=== PATIENT | female | born 1965 | race Hispanic/Latino ===

== ENCOUNTER 2017-12-25 16:32 | Emergency (ER) | payer SELFPAY ==
--- NOTE | 2017-12-25 17:08 | EKG ---
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
[2017-12-25] MEDS ORDERED: NA CHLORIDE 0.9% 1,000 ML ONE (17:09)
[2017-12-25 17:23] LABS: Urine Blood 3+ (NEG); Urine Glucose NEGATIVE (NEG); Urine Protein 1+ (NEG); Urine Specific Gravity 1.025 (1.005-1.030); Urine pH 5.5 (5.0-7.0)
[2017-12-25 17:40] LABS: Absolute Monocytes 1.2 K/uL (0.1-1.3); Absolute Neutrophil 0.8 K/uL (1.8-8.0); Basophils % 0.4 % (0-1.3); Eosinophils % 0.1 % (0-4.4); Lymphocytes % 34.1 % (15.3-44.8); MCH 38.8 pg (27.0-35.0); MCV 111.9 fL (80-100); MPV 7.7 fL (7.6-11.3); Monocytes % 40.5 % (3.3-12.3); RBC Red Blood Cell Count 0.86 M/uL (3.86-4.86)
[2017-12-25 17:43] LABS: Hematocrit 9.6 % (36.0-45.0)
[2017-12-25] MEDS ORDERED: POTASSIUM CL SA 10 MEQ TAB PO ONE (17:43)
[2017-12-25 18:06] LABS: Blood Morphology Comment NOTED (NOT SEEN); Platelet Estimate DECR
[2017-12-25 18:08] LABS: Anisocytosis 2+; Macrocytosis 3+
[2017-12-25 18:09] LABS: Hypochromasia 3+
[2017-12-25] MEDS ORDERED: NA CHLORIDE 0.9% 250 ML ONE (18:41)
--- NOTE | 2017-12-25 18:53 | RAD REPORT ---
EXAM DESCRIPTION: US - Transvaginal Study Probe - 12/25/2017 6:45 pm CLINICAL HISTORY: VAGINAL BLEEDING Pelvic pain. COMPARISON: No comparisons FINDINGS: The uterus is normal in size, shape and echotexture. Posterior myometrial fibroid is noted measuring 13 x 15 x 12 mm with evidence of submucosal extension. The uterus measures 7.1 x 4.2 x 3.6 cm. The endometrial stripe measures 5 mm, normal. Both ovaries are normal in size, shape and echotexture. The right ovary measures 3.8 x 2.3 x 2.0 cm. The left ovary measures 2.7 x 2.2 x 1.6 cm. No ovarian or parovarian lesions. No adnexal masses. Normal Doppler blood flow was demonstrated to both ovaries. No significant pelvic ascites. IMPRESSION: Posterior submucosal myometrial fibroid, otherwise negative study.
--- NOTE | 2017-12-25 20:25 | EDPHYS ---
Physician Documentation [facility] Name: Ashli Dickinson Age: 52 yrs Sex: Female : 1965 Arrival Date: 12/25/2017 Time: 16:35 Bed 14 Private MD: ED Physician Tee Amaya HPI: 12/25 17:28 This 52 yrs old Female presents to ER via Ambulatory with complaints of kb Vaginal Bleeding. 17:28 The patient presents with vaginal bleeding that is. Onset: The symptoms/episode kb began/occurred 5 day(s) ago. Modifying factors: The symptoms are alleviated by nothing, the symptoms are aggravated by nothing. Associated signs and symptoms: Pertinent positives: vaginal bleeding, Pertinent negatives: constipation, cramping, diarrhea, dyspareunia, dysuria, fever, hematuria, nausea, urinary frequency, vaginal discharge, vomiting. Severity of symptoms: At their worst the symptoms were moderate, in the emergency department the symptoms have improved, markedly. The patient has not experienced similar symptoms in the past. The patient has not recently seen a physician. Pt reports she started having vaginal bleeding on Friday. Yesterday pt had heavy bleeding with clots. States it is light today, but she feels tired and like her heart rate is fast. . 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 - Social history:: Smoking status: Patient uses tobacco products, 5 cigarettes per day. - Ebola Screening: : Patient negative for fever greater than or equal to 101.5 degrees Fahrenheit, and additional compatible Ebola Virus Disease symptoms Patient denies exposure to infectious person Patient denies travel to an Ebola-affected area in the 21 days before illness onset No symptoms or risks identified at this time. ROS: 17:27 Constitutional: Negative for fever, chills, and weight loss, Cardiovascular: Negative kb for chest pain, palpitations, and edema, Respiratory: Negative for shortness of breath, cough, wheezing, and pleuritic chest pain, Abdomen/GI: Negative for abdominal pain, nausea, vomiting, diarrhea, and constipation, Back: Negative for injury and pain, MS/Extremity: Negative for injury and deformity, Skin: Negative for injury, rash, and discoloration, Neuro: Negative for headache, weakness, numbness, tingling, and seizure. 17:27 : Positive for vaginal bleeding. Exam: 17:27 Constitutional: This is a well developed, well nourished patient who is awake, alert, kb and in no acute distress. Head/Face: Normocephalic, atraumatic. Chest/axilla: Normal chest wall appearance and motion. Nontender with no deformity. No lesions are appreciated. Cardiovascular: Regular rate and rhythm with a normal S1 and S2. No gallops, or rubs. Normal PMI, no JVD. No pulse deficits. +murmur Respiratory: Lungs have equal breath sounds bilaterally, clear to auscultation and percussion. No rales, rhonchi or wheezes noted. No increased work of breathing, no retractions or nasal flaring. Abdomen/GI: Soft, non-tender, with normal bowel sounds. No distension or tympany. No guarding or rebound. No evidence of tenderness throughout. Skin: Warm, dry with normal turgor. Normal color with no rashes, no lesions, and no evidence of cellulitis. MS/ Extremity: Pulses equal, no cyanosis. Neurovascular intact. Full, normal range of motion. Neuro: Awake and alert, GCS 15, oriented to person, place, time, and situation. Cranial nerves II-XII grossly intact. Motor strength 5/5 in all extremities. Sensory grossly intact. Cerebellar exam normal. Normal gait. 18:17 : Pelvic Exam: External exam: is normal, Speculum exam: scant bleeding, blood clots kb in vaginal vault, no cervicitis, os that is closed, the nurse was present for the exam, large clot removed from vault. Vital Signs: 16:51 BP 103 / 56; Pulse 116; Resp 16; Temp 98.2; Pulse Ox 97% on R/A; Weight 52.16 kg (R); iw Pain 0/10; 17:30 BP 100 / 58; Pulse 112; Resp 18; Pulse Ox 98% on R/A; hj 18:12 BP 94 / 57; Pulse 97; Resp 18; Pulse Ox 97% on R/A; hj 19:10 BP 105 / 50; Pulse 97; Resp 18; Temp 98.8(O); Pulse Ox 98% on R/A; Pain 0/10; rr5 19:40 rr5 20:55 BP 93 / 55; Pulse 94; Resp 17; Temp 98.9(O); Pulse Ox 99% on R/A; rr5 21:30 BP 90 / 56; Pulse 92; Resp 17; Temp 98.7(O); Pulse Ox 99% on R/A; Pain 0/10; rr5 19:10 Platelet concentrate infusion started. rr5 19:40 transfusion completed,see platelet concentrate transfusion form for Vital signs rr5 20:55 pre transfusion of PRBC rr5 21:30 see blood transfusion form. transferred patient to other facility. rr5 MDM: 16:46 Patient medically screened. kb 17:28 Data reviewed: vital signs, nurses notes. Data interpreted: Pulse oximetry: on room air kb is 97 %. Interpretation: normal. 19:01 Physician consultation: Saroj Morrow MD was called at 18:45, message left. kb 19:24 Physician consultation: Saroj Morrow MD was called at 19:25. kb 20:00 ED course: Dr Hartmann [facility]. kb 20:23 Counseling: I had a detailed discussion with the patient and/or guardian regarding: the kb historical points, exam findings, and any diagnostic results supporting the discharge/admit diagnosis, lab results, radiology results, the need to transfer to another facility, for higher level of care, [facility] does not immediately have the required specialist. 12/25 16:51 Order name: Basic Metabolic Panel; Complete Time: 17:32 kb 12/25 16:51 Order name: CBC with Diff kb 12/25 16:51 Order name: Type And Screen kb 12/25 17:13 Order name: Urine Dipstick--Ancillary (enter results); Complete Time: 17:27 gm 12/25 17:13 Order name: Urine --Ancillary (enter results); Complete Time: 17:27 gm 12/25 17:44 Order name: Manual Differential EDMS 12/25 16:51 Order name: EKG; Complete Time: 16:52 kb 12/25 17:45 Order name: US Transvaginal Study (Probe); Complete Time: 19:00 kb 12/25 18:03 Order name: ABO/RH no charge; Complete Time: 18:03 [facility] 12/25 18:04 Order name: Packed RBC Leukored -1 [facility] 12/25 18:04 Order name: Platelets, Leukored Pheresis [facility] 12/25 18:05 Order name: Bb Add On gm 12/25 16:51 Order name: Urine Test (obtain specimen); Complete Time: 17:06 kb 12/25 16:51 Order name: IV Saline Lock; Complete Time: 17:02 kb 12/25 16:51 Order name: Labs collected and sent; Complete Time: 17:06 kb 12/25 16:51 Order name: NPO; Complete Time: 17:03 kb 12/25 16:51 Order name: Urine Dipstick-Ancillary (obtain specimen); Complete Time: 17:06 kb 12/25 16:51 Order name: EKG - Nurse/Tech; Complete Time: 17:02 kb Administered Medications: 17:06 Drug: NS 0.9% 1000 ml Route: IV; Rate: 1000 ml; Site: right forearm; hj 17:33 Drug: Potassium Chloride 40 mEq Route: PO; hj 17:38 Follow up: Response: No adverse reaction hj Disposition: 12/25/17 20:24 Transfer ordered to [facility]. Diagnosis are Anemia, unspecified, Abnormal uterine and vaginal bleeding, unspecified, Pancytopenia. - Reason for transfer: Higher level of care. - Accepting physician is [facility]. - Condition is Stable. - Problem is new. - Symptoms have improved. Signatures: Dispatcher [employer] [facility] Vivi Glynn, BOXING INSTRUCTOR-C BOXING INSTRUCTOR-Ckb Michelle Gomez RN RN Mayuri Carr RN RN aa1 Olivia Belle, RN MAYRA Deon Diggs RN RN hj Corrections: (The following items were deleted from the chart) 20:33 18:17 : Pelvic Exam: External exam: is normal, Speculum exam: scant bleeding, blood kb clots in vaginal vault, no cervicitis, os that is closed, the nurse was present for the exam, kb 21:55 20:24 12/25/2017 20:24 Transfer ordered to [facility]. Diagnosis is Anemia, aa1 unspecified; Abnormal uterine and vaginal bleeding, unspecified; Pancytopenia. Reason for transfer: Higher level of care. Accept[facility] physician [facility] Viv[facility] Blak[facility]. Condition is Stable. Problem is new. Symptoms have improved. kb
--- NOTE | 2017-12-25 20:25 | ER ---
Nurse's Notes [facility] Name: Ashli Dickinson Age: 52 yrs Sex: Female : 1965 Arrival Date: 12/25/2017 Time: 16:35 Bed 14 Private MD: Diagnosis: Anemia, unspecified;Abnormal uterine and vaginal bleeding, unspecified;Pancytopenia Presentation: 12/25 16:40 Presenting complaint: Patient states: heavy vaginal bleeding since yesterday, with iw clots, pt has irregular periods, had not had a period in 6 months, last period she bled for a whole month, bleeding is now watery and light, pt states she feels tired, weak, heart feels like it's beating fast. Transition of care: patient was not received from another setting of care. 16:40 Method Of Arrival: Ambulatory iw 16:42 Onset of symptoms was December 24, 2017. Risk Assessment: Do you want to hurt yourself iw or someone else? Patient reports no desire to harm self or others. Initial Sepsis Screen: Does the patient meet any 2 criteria? No. Patient's initial sepsis screen is negative. Does the patient have a suspected source of infection? No. Patient's initial sepsis screen is negative. Care prior to arrival: None. 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 - Social history:: Smoking status: Patient uses tobacco products, 5 cigarettes per day. - Ebola Screening: : Patient negative for fever greater than or equal to 101.5 degrees Fahrenheit, and additional compatible Ebola Virus Disease symptoms Patient denies exposure to infectious person Patient denies travel to an Ebola-affected area in the 21 days before illness onset No symptoms or risks identified at this time. Screenin:03 Abuse screen: Denies threats or abuse. Denies injuries from another. Nutritional ch screening: No deficits noted. Tuberculosis screening: No symptoms or risk factors identified. Fall Risk None identified. Assessment: 17:03 General: Appears in no apparent distress. comfortable, Behavior is calm, cooperative. ch Pain: Complains of pain in low back area and suprapubic area Pain currently is 2 out of 10 on a pain scale. Neuro: No deficits noted. Respiratory: Airway is patent Respiratory effort is even, unlabored, Breath sounds are clear bilaterally. GI: Abdomen is flat, non-distended, Bowel sounds present X 4 quads. Abdomen is tender to palpation in suprapubic area. : Reports vaginal bleeding that is bright red, with clots, heavy flow. Derm: Skin is pale. 17:55 Reassessment: lab alert H/H- 3/3 to 9.6; Plt- 13; MD notified;. hj 18:10 Reassessment: provider in room for vaginal exam;. hj 18:28 Reassessment: US in room;. hj 19:00 General: Appears in no apparent distress. comfortable, Behavior is calm, cooperative, rr5 appropriate for age. Pain: Denies pain. Neuro: Level of Consciousness is awake, alert, obeys commands, Oriented to person, place, time, situation. Cardiovascular: Denies chest pain, Capillary refill < 3 seconds Patient's skin is warm and dry. Respiratory: Airway is patent Respiratory effort is even, unlabored. GI: Abdomen is flat, non-distended, Bowel sounds present X 4 quads. Abdomen is tender to palpation in suprapubic area. : Reports vaginal bleeding that is bright red, with clots, heavy flow. EENT: No signs and/or symptoms were reported regarding the EENT system. Derm: Skin is pale. Musculoskeletal: Capillary refill < 3 seconds, Range of motion: intact in all extremities. 21:25 Reassessment: Patient appears in no apparent distress at this time. Patient and/or rr5 family updated on plan of care and expected duration. Pain level reassessed. Patient is alert, oriented x 3, equal unlabored respirations, skin warm/dry/pink. platelet concentrate ongoing without any complaints. 21:35 Reassessment: Patient appears in no apparent distress at this time. Patient is alert, rr5 oriented x 3, equal unlabored respirations, skin warm/dry/pink. patient transferred to other facility via EMS. vitally stable ongoing Blood transfusion no complaints made, discussed patient the need for transfer and agreed. Vital Signs: 16:51 BP 103 / 56; Pulse 116; Resp 16; Temp 98.2; Pulse Ox 97% on R/A; Weight 52.16 kg (R); iw Pain 0/10; 17:30 BP 100 / 58; Pulse 112; Resp 18; Pulse Ox 98% on R/A; hj 18:12 BP 94 / 57; Pulse 97; Resp 18; Pulse Ox 97% on R/A; hj 19:10 BP 105 / 50; Pulse 97; Resp 18; Temp 98.8(O); Pulse Ox 98% on R/A; Pain 0/10; rr5 19:40 rr5 20:55 BP 93 / 55; Pulse 94; Resp 17; Temp 98.9(O); Pulse Ox 99% on R/A; rr5 21:30 BP 90 / 56; Pulse 92; Resp 17; Temp 98.7(O); Pulse Ox 99% on R/A; Pain 0/10; rr5 19:10 Platelet concentrate infusion started. rr5 19:40 transfusion completed,see platelet concentrate transfusion form for Vital signs rr5 20:55 pre transfusion of PRBC rr5 21:30 see blood transfusion form. transferred patient to other facility. rr5 ED Course: 16:35 Patient arrived in ED. mr 16:43 Triage completed. iw 16:45 [facility]-C [facility]. kb 16:45 Tee Amaya MD is Attending Physician. kb 16:52 Arm band placed on. iw 17:02 Deon Diggs, MAYRA is Primary Nurse. hj 17:03 Patient has correct armband on for positive identification. Placed in gown. Bed in low ch position. Call light in reach. Side rails up X 1. Adult w/ patient. Pulse ox on. NIBP on. Warm blanket given. 17:03 Initial lab(s) drawn, by ky, sent to lab. Urine collected: T\T\S collected, blood band ch applied to patient. Inserted saline lock: 20 gauge in right forearm, using aseptic technique. Blood collected. 17:30 EKG done, by instrument and control technician. reviewed by Vivi QUIÑONEZ. sm3 18:45 US Transvaginal Study (Probe) In Process Unspecified. EDMS 18:45 Ultrasound completed. Patient tolerated well. hr 21:35 No provider procedures requiring assistance completed. Patient transferred, IV remains rr5 in place. intact. Administered Medications: 17:06 Drug: NS 0.9% 1000 ml Route: IV; Rate: 1000 ml; Site: right forearm; hj 17:33 Drug: Potassium Chloride 40 mEq Route: PO; hj 17:38 Follow up: Response: No adverse reaction hj Outcome: 20:24 ER care complete, transfer ordered by MD. nixon 21:35 Transferred by ground EMS to [facility], Transfer form rr5 completed. 21:35 Condition: stable 21:35 Instructed on the need for transfer, Demonstrated understanding of follow-up care. 21:55 Patient left the ED. aa1 Signatures: Dispatcher [employer] EDMS Vivi Glynn, INSURANCE HEALTHCARE CONSULTANT-C INSURANCE HEALTHCARE CONSULTANT-Michelle Brandt, RN RN Mayuri Torres, RN RN aa1 Kenyatta Olivas mr Devang, Olivia Tloedo, RN MAYRA Deon Diggs RN Amy Ramirez 3 Wing Chand RN RN rr5 Corrections: (The following items were deleted from the chart) 22:24 21:54 Reassessment: Patient appears in no apparent distress at this time. Patient rr5 and/or family updated on plan of care and expected duration. Pain level reassessed. Patient is alert, oriented x 3, equal unlabored respirations, skin warm/dry/pink. platelet concentrate ongoing without any complaints rr5
== END 2017-12-25 21:55 | disposition short-term general hospital (02) ==
LOC: ER 16:32
PROC: 30233R1 Transfusion of Nonautologous Platelets into Peripheral Vein, Percutaneous Approach (ICD-10-PCS; principal; 2017-12-25)
PROC: 30233N1 Transfusion of Nonautologous Red Blood Cells into Peripheral Vein, Percutaneous Approach (ICD-10-PCS; 2017-12-25)
DX: D64.9 Anemia, unspecified (principal); D61.818 Other pancytopenia; Z72.0 Tobacco use
CPT/HCPCS: 36415; 76830; 80048; 81003; 81025; 85025; 86850; 86900; 86901; 93005; 99285; J7030; P9016; P9035